=== PATIENT | female | born 1965 | race Two or more races ===

== ENCOUNTER 2021-06-21 14:09 | Emergency (ER) | payer MEDICAID ==
[~2021-06-21] VITALS: Ht 157.5 cm; Wt 72.6 kg
[2021-06-21 15:06] LABS: Basophils # (auto) 0.1 10 ^3/uL (0-0.2); Basophils % (auto) 1.1 % (0.0-2.0); Eosinophils # (auto) 0.1 10 ^3/uL (0-0.8); Eosinophils % (auto) 0.9 % (0.0-7.0); Hematocrit 42.7 % (36.0-46.0); Hemoglobin 15.2 g/dL (12.2-16.2); Lymphocytes # (auto) 4.4 10 ^3/uL (0.4-5.4); Lymphocytes % (auto) 36.7 % (10.0-50.0); Mean Corpuscular Hemoglobin 30.3 pg (28.0-32.0); Mean Corpuscular Hgb Conc. 35.5 g/dL (32.0-36.0); Mean Corpuscular Volume 85.2 fL (80.0-100.0); Monocytes # (auto) 0.6 10 ^3/uL (0-1.3); Monocytes % (auto) 5.2 % (0.0-12.0); Neutrophils # (auto) 6.7 10 ^3/uL (1.6-8.6); Neutrophils % (auto) 56.1 % (37.0-80.0); Nucleated Red Blood Cells % 0.1 %; Red Blood Cells 5.01 10^6/uL (4.0-5.20); Red Cell Distribution Width 12.8 % (11.8-14.3); White Blood Cell 11.9 10^3/uL (4.4-10.8)
[2021-06-21 15:29] LABS: Albumin 4.1 g/dL (3.4-5.0); Anion Gap 9 (5-15); Blood Urea Nitrogen 15 mg/dL (7-18); Calcium 8.8 mg/dL (8.5-10.1); Carbon Dioxide 22 mmol/L (21-32); Chloride 106 mmol/L (98-107); Glucose 106 mg/dL (74-106); Potassium 3.6 mmol/L (3.5-5.1); Sodium 137 mmol/L (136-145)
[2021-06-21 15:38] LABS: Alkaline Phosphatase 138 U/L (45-117); Aspartate Aminotransferase 38 U/L (15-37); BUN/Creatinine Ratio 19.7; Bilirubin, Total 0.5 mg/dL (0.2-1.0); GFR African American 102 mL/min; GFR Non-African American 84 mL/min; Total Protein 8.2 g/dL (6.4-8.2)
[2021-06-21 15:41] LABS: Alanine Aminotransferase 62 U/L (13-56)
[2021-06-21] MEDS ORDERED: PANTOPRAZOLE 40 MG/10 ML VIAL INJ IV ONE (16:00)
[2021-06-21] MEDS ORDERED: MORPHINE SULFATE 4 MG/ML SYR/VIAL IV ONE (16:00)
[2021-06-21] MEDS ORDERED: SODIUM CHLORIDE 0.9% 500 ML IVB ONE (16:00)
[2021-06-21] MEDS ORDERED: ONDANSETRON HCL 4 MG/2 ML VIAL IV ONE (16:00)
[2021-06-21 16:19] LABS: Amylase 57 U/L (25-115); Lipase 121 U/L (73-393)
[2021-06-21 22:23] VITALS: BP 135/84
== END 2021-06-21 22:26 | disposition home or self-care (01) ==
LOC: ER 14:09
DX: K21.9 Gastro-esophageal reflux disease without esophagitis (principal); D72.829 Elevated white blood cell count, unspecified; E11.9 Type 2 diabetes mellitus without complications; E78.5 Hyperlipidemia, unspecified; R42 Dizziness and giddiness; Z98.51 Tubal ligation status
CPT/HCPCS: 36415; 71045; 76705; 80053; 82150; 83690; 84484; 85025; 93005